=== PATIENT | male | born 1945 | race Caucasian/White ===

== ENCOUNTER → 2017-04-13 | Outpatient (REF) | payer MEDICARE | LOC: M LABDRAWC 11:36 | PROVIDERS: ATTEND Internal Medicine Cardiovascular Disease | DX: R94.31 Abnormal electrocardiogram [ECG] [EKG] (principal); Z79.899 Other long term (current) drug therapy ==

== ENCOUNTER 2021-02-24 16:44 | Inpatient (IN) | payer MEDICARE ==
[~2021-02-24] VITALS: Ht 180.3 cm; Wt 93.5 kg
[2021-02-24 17:08] LABS: VENOUS BASE EXCESS 1.8 (-2.0-2.0); VENOUS HCO3 24.3 MEQ/L (23.0-27.0); VENOUS O2 SATURATION 98.1 % (60.0-80.0); VENOUS PARTIAL PRESSURE O2 98.9 mmHg (30.0-50.0); VENOUS PH 7.499 UNITS (7.330-7.430); VENOUS STANDARD HCO3 26.1 MEQ/L; VENOUS TOTAL CO2 25.3 MEQ/L (24.0-28.0)
[2021-02-24 17:22] LABS: BASO % 0.7 % (0.0-1.0); EOS % 0.2 % (0.0-3.0); HEMOGLOBIN 12.6 g/dl (13.5-17.5); LYMPH # 0.3 10^3/uL (1.5-5.0); LYMPH % 5.7 % (24.0-44.0); MEAN CORPUSCULAR HEMOGLOBIN 28.6 pg (27.0-33.0); MEAN CORPUSCULAR HGB CONC 33.2 g/dl (32.0-36.5); MEAN CORPUSCULAR VOLUME 86.2 fl (80.0-96.0); MONO # 0.2 10^3/uL (0.0-0.8); MONO % 3.5 % (2.0-8.0); NEUTROPHILS # 5.2 10^3/uL (1.5-8.5); NEUTROPHILS % 89.2 % (36.0-66.0); PLATELET COUNT, AUTOMATED 121 10^3/uL (150-450); RED BLOOD COUNT 4.41 10^6/uL (4.30-6.10); WHITE BLOOD COUNT 5.8 10^3/uL (4.0-10.0)
[2021-02-24] MEDS ORDERED: IBUPROFEN 800 MG TAB PO ONE (17:25)
[2021-02-24] MEDS ORDERED: NS 1,000 ML IV ONE (17:35)
--- NOTE | 2021-02-24 17:49 | REP ---
INDICATION: SEPSIS/SHOCK. COMPARISON: None. TECHNIQUE: Portable FINDINGS: The technique utilized in obtaining the radiograph has magnified the cardiac silhouette and accentuated the interstitial markings. The lung beltrán are hypoexpanded further accentuating the findings. There is cardiomegaly accentuated by technique. No patchy parenchymal opacities or pleural effusions are evident on this limited portable exam. The osseous structures are within normal limits. IMPRESSION: There is no acute cardiopulmonary disease. <Electronically signed by Carlo Kim > 02/24/21 [id number]
[2021-02-24 18:01] LABS: ALBUMIN 3.1 GM/DL (3.2-5.2); ALT/SGPT 30 U/L (12-78); AMYLASE 36 U/L (25-115); BILIRUBIN,DIRECT 0.6 MG/DL (0.0-0.2); BILIRUBIN,TOTAL 1.3 MG/DL (0.2-1.0); BLOOD UREA NITROGEN 22 MG/DL (7-18); CALCIUM LEVEL 7.7 MG/DL (8.8-10.2); CARBON DIOXIDE LEVEL 24 MEQ/L (21-32); CHLORIDE LEVEL 105 MEQ/L (98-107); CK-MB VALUE MASS 2.9 NG/ML (<3.6); CPK CREATINE PHOSPHOKINASE 1180 U/L (39-308); CREATININE FOR GFR 1.19 MG/DL (0.70-1.30); GLOMERULAR FILTRATION RATE > 60.0 (>42); GLUCOSE, FASTING 144 MG/DL (70-100); MB/CK RELATIVE INDEX 0.25 (< OR =4); POTASSIUM SERUM 3.7 MEQ/L (3.5-5.1); SODIUM LEVEL 136 MEQ/L (136-145); TOTAL PROTEIN 6.4 GM/DL (6.4-8.2); TROPONIN I < 0.02 NG/ML (< 0.10)
[2021-02-24 18:14] LABS: INR 1.59; PROTHROMBIN TIME 19.3 SECONDS (12.7-14.5)
[2021-02-24 18:15] LABS: PARTIAL THROMBOPLASTIN TIME 42.7 SECONDS (25.9-37.0)
[2021-02-24] MEDS ORDERED: ISOVUE-370 76% 100ML VIAL As Ordered ONE (18:21)
--- NOTE | 2021-02-24 19:54 | REPVR ---
PROCEDURE INFORMATION: Exam: CT Chest With Contrast; Diagnostic Exam date and time: 02/24/2021 7:38 PM Age: 75 years old Clinical indication: Shortness of breath; Additional info: SOB; Upper abdominal pain; Fever TECHNIQUE: Imaging protocol: Diagnostic computed tomography of the chest with contrast. Radiation optimization: All CT scans at this facility use at least one of these dose optimization techniques: automated exposure control; mA and/or kV adjustment per patient size (includes targeted exams where dose is matched to clinical indication); or iterative reconstruction. Contrast material: ISOVUE 370; Contrast volume: 100 ml; Contrast route: INTRAVENOUS (IV); COMPARISON: CR PORTABLE CHEST X-RAY 02/24/2021 5:13 PM FINDINGS: Lungs: Bibasilar atelectasis. Flat nodular opacity medial aspect left upper lobe measures 5 mm. Scattered 2-3 mm noncalcified pulmonary parenchymal nodules demonstrated peripherally. Findings likely postinflammatory. Pleural spaces: Unremarkable. No pneumothorax. No pleural effusion. Heart: There is moderate atherosclerotic calcification of the coronary arteries. Pulmonary arteries: Although not performed as a CTA no significant central pulmonary emboli demonstrated. Evaluation of peripheral pulmonary arteries is limited. Aorta: There is fusiform dilatation of the supravalvular ascending thoracic aorta which measures 3.9 cm. maximally. There is no dissection or saccular component. Lymph nodes: Unremarkable. No enlarged lymph nodes. Bones/joints: Unremarkable. No acute fracture. Soft tissues: Unremarkable. Other findings: Bilateral apical pleuroparenchymal scarring. IMPRESSION: 1. Flat nodular opacity medial aspect left upper lobe measures 5 mm. Scattered 2-3 mm noncalcified pulmonary parenchymal nodules demonstrated peripherally. Findings likely postinflammatory. For patients at low risk (minimal or absent history of smoking and of other known risk factors), no routine follow-up is indicated. For patients at high risk (history of smoking or of other known risk factors), consider optional CT Chest at 12 months. (Reference: Owen) References: Owen Avendano, et al. Guidelines for Management of Incidental Pulmonary Nodules Detected on CT Images: From the Fleischner Society 2017. Radiology. 2017;284(1):228-243. 2. There is fusiform dilatation of the supravalvular ascending thoracic aorta which measures 3.9 cm. maximally. There is no dissection or saccular component. 3. Although not performed as a CTA no significant central pulmonary emboli demonstrated. Evaluation of peripheral pulmonary arteries is limited. Electronically signed by: Enmanuel Almonte On 02/24/2021 19:53:40 PM
--- NOTE | 2021-02-24 19:59 | REPVR ---
PROCEDURE INFORMATION: Exam: CT Abdomen And Pelvis With Contrast Exam date and time: 02/24/2021 7:38 PM Age: 75 years old Clinical indication: Abdominal pain; Localized; Upper; Additional info: SOB; Upper abdominal pain; Fever TECHNIQUE: Imaging protocol: Computed tomography of the abdomen and pelvis with contrast. Radiation optimization: All CT scans at this facility use at least one of these dose optimization techniques: automated exposure control; mA and/or kV adjustment per patient size (includes targeted exams where dose is matched to clinical indication); or iterative reconstruction. Contrast material: ISOVUE 370; Contrast volume: 100 ml; Contrast route: INTRAVENOUS (IV); COMPARISON: CR PORTABLE CHEST X-RAY 02/24/2021 5:13 PM FINDINGS: Liver: Normal. No mass. Gallbladder and bile ducts: Normal. No calcified stones. No ductal dilation. Pancreas: Normal. No ductal dilation. Spleen: Normal. No splenomegaly. Adrenal glands: Normal. No mass. Kidneys and ureters: 8 mm simple cyst lateral aspect of the right kidney. No follow-up suggested. Stomach and bowel: Moderate diverticulosis is present in the distal colon. No diverticulitis. Appendix: No evidence of appendicitis. Intraperitoneal space: Unremarkable. No free air. No significant fluid collection. Vasculature: Unremarkable. No abdominal aortic aneurysm. Lymph nodes: Unremarkable. No enlarged lymph nodes. Urinary bladder: Contour irregularity at the bladder base to the right of midline may be related to prominent median lobe of the prostate gland indenting the bladder although a bladder neoplasm not excluded. Reproductive: The prostate gland demonstrates moderate hyperplasia. Bones/joints: Mild anterolisthesis of L3 on L4. Severe disc space narrowing L4-L5 and L5-S1. Mild central spinal stenosis L1-L2, moderate to severe central spinal stenosis L2-L3 severe central spinal stenosis L3-L4, mild central spinal stenosis L4-L5. Soft tissues: Small right inguinal hernia without incarceration. Other findings: Osteoporosis. IMPRESSION: 1. Moderate prostatic hyperplasia. 2. Contour irregularity at the bladder base to the right of midline may be related to prominent median lobe of the prostate gland indenting the bladder although a bladder neoplasm not excluded. 3. Moderate diverticulosis is present in the distal colon. No diverticulitis. COMMENTS: Consistent with the [place] [employer]'s Incidental Findings Committee white paper (J Am Emil Radiol 2018): Any incidental renal lesion less than 1 cm or classified as too small to characterize, or any incidental cystic renal lesion characterized as simple-appearing, is likely benign. No follow-up imaging is recommended for these lesions per consensus recommendations based on imaging criteria. Electronically signed by: Enmanuel Almonte On 02/24/2021 19:59:23 PM
[2021-02-24] MEDS ORDERED: LIDOCAINE 2% 5ML JELLY UROJET TOP ONE (20:00)
[2021-02-24 20:27] LABS: AMORPHOUS SEDIMENT SMALL (NEGATIVE); APPEARANCE, URINE CLOUDY (CLEAR); BACTERIA, URINE AUTO 2+ (NEGATIVE); BILIRUBIN, URINE AUTO NEGATIVE (NEGATIVE); BLOOD, URINE BLOOD 3+ (NEGATIVE); COLOR, URINE AMBER (YELLOW); GLUCOSE, URINE (UA) AUTO NEGATIVE (NEGATIVE); KETONE, URINE AUTO NEGATIVE (NEGATIVE); LEUKOCYTE ESTERASE, URINE AUTO 3+ (NEGATIVE); MUCUS, URINE SMALL (NEGATIVE); NITRITE, URINE AUTO NEGATIVE (NEGATIVE); PROTEIN, URINE AUTO 2+ mg/dL (NEGATIVE); RBC, URINE AUTO 30 /HPF (0-3); SPECIFIC GRAVITY URINE AUTO 1.048 (1.002-1.035); SQUAMOUS EPITHELIAL CELL UR AU 2 /HPF (0-6); WBC, URINE AUTO TNTC /HPF (0-3)
[2021-02-24] MEDS ORDERED: cefTRIAXone SOD 2 GM in D5W MINI-BAG PLUS 50 ML IV ONE (20:40)
[2021-02-24] MEDS ORDERED: LISI-898 PO (21:15)
[2021-02-24] MEDS ORDERED: ATOR40TA75 PO (21:15)
[2021-02-24] MEDS ORDERED: ELIQ5TAB PO (21:15)
[2021-02-24] MEDS ORDERED: ACET32TAB PO (22:41)
[2021-02-24] MEDS ORDERED: GNP1000T11 PO (22:41)
[2021-02-24] MEDS ORDERED: ACET25TA12 PO (22:41)
[2021-02-24] MEDS ORDERED: VITA500075 PO (22:41)
[2021-02-24] MEDS ORDERED: VITMTA PO (22:41)
[2021-02-24] MEDS ORDERED: MOM 30ML SUSPENSION UDC PO PRN (22:45)
[2021-02-24] MEDS ORDERED: HOME MED LIST COMPLETE! XX SCH (22:45)
[2021-02-24] MEDS ORDERED: MAALOX 30 ML SUSP *UDC PO PRN (22:45)
--- NOTE | 2021-02-24 22:49 | HPEPDOC ---
[facility] Medical History & Physical Date of Admission Feb 24, 2021 Date of Service: Feb 24, 2021 History and Physical CHIEF COMPLAINT: Fevers and chills HISTORY OF PRESENT ILLNESS: 75-year-old male with a past medical history of atrial fibrillation, osteoarthritis, presented to ER with a feeling of generalized malaise and subjective fevers with mild epigastric discomfort. He states he felt the diet well the day prior and he is a rosado understanding to his work chores. On arrival to the ER found to have a temperature of 102. No leukocytosis. UA showing evidence for urinary tract infection. CT of the abdomen showing moderate prostatic hyperplasia with contour irregularity at the bladder base which may represent prominent median lobe of prostate, although a bladder neoplasm cannot be excluded. CT of the chest did not reveal acute findings. Patient was started on ceftriaxone and will be admitted to hospital service for the treatment of sepsis secondary to urinary tract infection. PAST MEDICAL HISTORY: HTN Atrial fibrillation? On eliquis. Arthritis PAST SURGICAL HISTORY: Tonsillectomy, cataract surgery SOCIAL HISTORY: Patient denies smoking Patient denies etoh use Patient denies illicit drug use FAMILY HISTORY: Father had a history of Parkinson's and heart failure. Mother had CVA. Both are . ALLERGIES: Please see below. REVIEW OF SYSTEMS: 10 point ROS was conducted, relevant findings are noted in the HPI. HOME MEDICATIONS: Please see below. PHYSICAL EXAMINATION: VITAL SIGNS: please see below General: NAD, comfortable HEENT: PERRLA, EOMI, sclerae clear Neck: supple, normal ROM, no JVD Respiratory: lungs CTAB, no wheeze, no rales, no crackles CVS: RRR, normal S1, S2, no murmurs Abdo: soft, no masses, no hepatosplenomegaly, BS+, no rebound tenderness Extremities: no edema, pulses 2+ MSK: no joint deformities, normal ROM Neuro: no focal neuro deficits, moving all 4 extremities, CN2-12 intact. Strength 5/5 in all 4 extremities. No nystagmus. Psych: calm, cooperative, AAO x 3 LABORATORY DATA: See below. IMAGING: CT CT abdomen pelvis on 02/24/2021: IMPRESSION: 1. Moderate prostatic hyperplasia. 2. Contour irregularity at the bladder base to the right of midline may be related to prominent median lobe of the prostate gland indenting the bladder although a bladder neoplasm not excluded. 3. Moderate diverticulosis is present in the distal colon. No diverticulitis. CT chest with IV contrast on 02/24/2021: 1. Flat nodular opacity medial aspect left upper lobe measures 5 mm. Scattered 2-3 mm noncalcified pulmonary parenchymal nodules demonstrated peripherally. Findings likely postinflammatory. For patients at low risk (minimal or absent history of smoking and of other known risk factors), no routine follow-up is indicated. For patients at high risk (history of smoking or of other known risk factors), consider optional CT Chest at 12 months. (Reference: Owen) References: Owen Avendano, et al. Guidelines for Management of Incidental Pulmonary Nodules Detected on CT Images: From the Fleischner Society 2017. Radiology. 2017;284(1):228-243. 2. There is fusiform dilatation of the supravalvular ascending thoracic aorta which measures 3.9 cm. maximally. There is no dissection or saccular component. 3. Although not performed as a CTA no significant central pulmonary emboli demonstrated. Evaluation of peripheral pulmonary arteries is limited. MICROBIOLOGY: Please see below. ASSESSMENT: 72-year-old male with no significant past medical history presented with fever and tachycardia. UA showing findings consistent with infection. Patient was started on ceftriaxone. Will be admitted for the treatment of sepsis secondary to UTI. PLAN: Sepsis 2/2 UTI - UA + LE, pyuria, RBCs. - renal function wnl. - CT abdo pelvis showing no hydronephrosis, however patient required straight cath for urine sample - Blood Cx and urine culture sent - started on ceftriaxone in ER, will continue same - Tylenol prn for fever - Monitor CBC and vitals Suspected urinary retention, possibly due to prostatic hyperplasia - obtain bladder US and PVR - will insert ruvalcaba if retention - start flomax Incidental findings of possible bladder mass - may be related to prominent medical prostate gland - order bladder US - will require urology eval, likely outpatient Suspected atrial fibrillation - patient states that he has afib, and takes eliquis - his EKG showed sinus tachycardia at time of arrival - I was unable to find documentation of in her PCP notes - will continue eliquis Hx of HTN - resume lisinopril Ascending thoracic aortic aneurysm - 3.9 cm, no dissection or saccular component - requires outpatient surveillance by vascular surgery. Elevated bilirubin - no c/o abdominal pain at this time, but reported mild discomfrt at time of admission - CT abdomen pelvis w IV contrast does not show distension of gallbladder, or dilation of the CBD - will obtain liver US Incidental pulmonary nodule - outpatient surveillance DVT ppx - heparin 5000 units q8h SC Dispo: admission expect to last > 2 midnights Vital Signs Vital Signs Date Time Temp Pulse Resp B/P (MAP) Pulse Ox O2 Delivery O2 Flow Rate FiO2 02/24/21 22:35 80 95 02/24/21 22:22 17 116/67 (83) Room Air 02/24/21 20:15 97.2 Laboratory Data Labs 24H Laboratory Tests 2 02/24/21 16:58: Blood Gas Bicarbonate Standard 26.1, Venous Blood pH 7.499H, Venous Blood Partial Pressure CO2 32.0L, Venous Blood Partial Pressure O2 98.9H, Venous Blood Total Carbon Dioxide 25.3, Venous Blood HCO3 24.3, Venous Blood Oxygen Saturation 98.1H, Venous Blood Base Excess 1.8 02/24/21 17:01: Immature Granulocyte % (Auto) 0.7, Neutrophils (%) (Auto) 89.2H, Lymphocytes (%) (Auto) 5.7L, Monocytes (%) (Auto) 3.5, Eosinophils (%) (Auto) 0.2, Basophils (%) (Auto) 0.7, Neutrophils # (Auto) 5.2, Lymphocytes # (Auto) 0.3L, Monocytes # (Auto) 0.2, Eosinophils # (Auto) 0.0, Basophils # (Auto) 0.0, Nucleated Red Blood Cells % (auto) 0.0, Anion Gap 7L, Glomerular Filtration Rate > 60.0, Lactic Acid Level 1.3, Calcium Level 7.7L, Total Bilirubin 1.3H, Direct Bilirubin 0.6H, Aspartate Amino Transf (AST/SGOT) 48H, Alanine Aminotransferase (ALT/SGPT) 30, Alkaline Phosphatase 68, Total Creatine Kinase 1180H, Creatine Kinase MB 2.9, Creatine Kinase MB Relative Index 0.25, Troponin I < 0.02, C- Reactive Protein, Quantitative 18.20H, Total Protein 6.4, Albumin 3.1L, Albumin/Globulin Ratio 0.9, Amylase Level 36 02/24/21 17:35: Prothrombin Time 19.3H, Prothromb Time International Ratio 1.59, Activated Partial Thromboplast Time 42.7H 02/24/21 20:11: Urine Color SEAN, Urine Appearance CLOUDYH, Urine pH 5.0, Urine Specific [place] 1.048, Urine Protein 2+H, Urine Glucose (Auto)(UA) NEGATIVE, Urine Ketones (Auto) NEGATIVE, Urine Blood 3+H, Urine Nitrite NEGATIVE, Urine Bilirubin NEGATIVE, Urine Urobilinogen 2.0H, Urine Leukocyte Esterase (Auto) 3+H, Urine WBC (Auto) TNTCH, Urine RBC (Auto) 30H, Urine Hyaline Casts (Auto) 0, Urine Bacteria (Auto) 2+H, Urine Squamous Epithelial Cells 2, Urine Amorphous Sediment (Auto) SMALLH, Urine Mucus (Auto) SMALL, Urine Sperm (Auto) MODERATEH CBC/BMP Laboratory Tests 02/24/21 17:01 Microbiology Microbiology 02/24/21 Blood Culture, Received Pending 02/24/21 Urine Culture, Received Pending 02/24/21 Respiratory Virus Panel (PCR) (RODRIGUE) - Final, Complete 02/24/21 Blood Culture, Received Pending Home Medications Scheduled Acetaminophen/Diphenhydramine (Acetaminophen Pm Caplet) 1 Each Tablet, 1 TAB PO QHS Apixaban (Eliquis) 5 Mg Tablet, 5 MG PO BID Atorvastatin Calcium (Atorvastatin Calcium) 40 Mg Tablet, 40 MG PO QPM Cholecalciferol (Vitamin D3) (Vitamin D3) 125 Mcg Capsule, 125 MCG PO DAILY Glucosamine Sulfate Dipot Chlr (Glucosamine) 1,000 Mg Tablet, 1,000 MG PO DAILY Lisinopril (Lisinopril) 5 Mg Tablet, 5 MG PO QPM Multivitamins (Thera M Plus Tablet) 1 Each Tablet, 1 TAB PO DAILY Scheduled PRN Acetaminophen (Acetaminophen) 325 Mg Tablet, 650 MG PO TID PRN for FEVER Allergies Coded Allergies: No Known Allergies (Unverified , 02/24/21) BROOKE FERRIS MD Feb 24, 2021 22:49
[2021-02-24] MEDS: APIXABAN 5 MG TAB (ELIQUIS) PO SCH (23:15)
--- NOTE | 2021-02-25 01:15 | REPVR ---
PROCEDURE INFORMATION: Exam: US Abdomen, Limited; Right Upper Quadrant Exam date and time: 02/24/2021 11:06 PM Age: 75 years old Clinical indication: Abdominal pain; Acute; Additional info: Bili elevated TECHNIQUE: Imaging protocol: US abdomen. Real time ultrasound with image documentation. Limited exam focused on the right upper quadrant. COMPARISON: CT ABD/PEL W/IV CONTRAST ONLY 02/24/2021 7:22 PM FINDINGS: Liver: Normal. No masses. Gallbladder: No cholelithiasis or pathologic gallbladder wall thickening. Common bile duct: Normal. No stones. No dilation. Pancreas: No focal abnormality involving the visualized portions of the pancreas. Right kidney: Right kidney measures up to 12.0 cm. Small cyst at the mid to inferior kidney measures 1.5 cm. No hydronephrosis. IMPRESSION: No acute abnormality. Electronically signed by: Robby Rodgers On 02/25/2021 01:15:20 AM
[2021-02-25 01:32] VITALS: BP 133/74
[2021-02-25] MEDS: ACETAMINOPHEN TAB 650MG DOSE (2X325MG) PO PRN ×2 (05:05→22:05)
[2021-02-25 06:00] VITALS: BP 107/56
[2021-02-25] MEDS ORDERED: IBUPROFEN 400MG TAB PO ONE (06:15)
[2021-02-25 06:55] LABS: BASO % 0.4 % (0.0-1.0); EOS % 0.1 % (0.0-3.0); HEMATOCRIT 36.4 % (42.0-52.0); HEMOGLOBIN 11.9 g/dl (13.5-17.5); LYMPH # 0.2 10^3/uL (1.5-5.0); LYMPH % 2.4 % (24.0-44.0); MEAN CORPUSCULAR HEMOGLOBIN 28.3 pg (27.0-33.0); MEAN CORPUSCULAR HGB CONC 32.7 g/dl (32.0-36.5); MEAN CORPUSCULAR VOLUME 86.5 fl (80.0-96.0); MONO # 0.3 10^3/uL (0.0-0.8); MONO % 3.3 % (2.0-8.0); NEUTROPHILS # 7.7 10^3/uL (1.5-8.5); NEUTROPHILS % 93.3 % (36.0-66.0); PLATELET COUNT, AUTOMATED 109 10^3/uL (150-450); RED BLOOD COUNT 4.21 10^6/uL (4.30-6.10); WHITE BLOOD COUNT 8.3 10^3/uL (4.0-10.0)
[2021-02-25 07:15] LABS: ALBUMIN 2.5 GM/DL (3.2-5.2); ALT/SGPT 36 U/L (12-78); BILIRUBIN,TOTAL 0.7 MG/DL (0.2-1.0); BLOOD UREA NITROGEN 21 MG/DL (7-18); CALCIUM LEVEL 7.7 MG/DL (8.8-10.2); CARBON DIOXIDE LEVEL 25 MEQ/L (21-32); CHLORIDE LEVEL 107 MEQ/L (98-107); CREATININE FOR GFR 0.95 MG/DL (0.70-1.30); GLOMERULAR FILTRATION RATE > 60.0 (>42); GLUCOSE, FASTING 95 MG/DL (70-100); POTASSIUM SERUM 3.8 MEQ/L (3.5-5.1); SODIUM LEVEL 140 MEQ/L (136-145)
[2021-02-25] MEDS: MULTIVITAMINS/MINERALS THERAP 1 TAB PO SCH (08:14)
[2021-02-25] MEDS: APIXABAN 5 MG TAB (ELIQUIS) PO SCH ×2 (08:14→20:01)
[2021-02-25] MEDS: TAMSULOSIN 0.4 MG CAP PO SCH (08:14)
[2021-02-25] MEDS: PIPERACILLIN/TAZOBACTAM SOD 3.375 GM in D5W MINI-BAG PLUS 50 ML IV SCH ×3 (08:37→20:02)
[2021-02-25] MEDS ORDERED: NS 1,000 ML IV ONE ×2 (08:45→15:25)
[2021-02-25] MEDS ORDERED: KETOROLAC 30 MG/ML 1ML VIAL IV ONE (08:50)
[2021-02-25] MEDS ORDERED: cefTRIAXone SOD 1 GM in D5W MINI-BAG PLUS 50 ML IV SCH (09:00)
[2021-02-25] MEDS ORDERED: ACETAMINOPHEN 500 MG TAB PO ONE (09:00)
[2021-02-25 09:33] VITALS: BP 108/58
[2021-02-25] MEDS ORDERED: VANCOMYCIN HCL 1,000 MG, VIAL MATE ADAPTER 1 EACH in NS 250 ML IV ONE (10:00)
[2021-02-25] MEDS ORDERED: VANCOMYCIN HCL 750 MG, VIAL MATE ADAPTER 1 EACH in NS 250 ML IV ONE (11:00)
[2021-02-25] MEDS ORDERED: FLUBLOK(EGG FREE)(QUAD)INFLUENZA VACC 0.5ML SYRINGE 18YRS & OLDER IM ONE (12:00)
--- NOTE | 2021-02-25 13:10 | IPN ---
PROGRESS NOTE DATE: 02/25/2021 SUBJECTIVE: Patient complains of chills, not feeling well, no chest pain, pressure, tightness, shortness of breath, nausea or vomiting. He complains of slight abdominal discomfort without constipation or diarrhea. T-max is 103.5 despite Tylenol and Ibuprofen and Toradol. OBJECTIVE: VITAL SIGNS: T-max 103.5. Currently temperature 99.9, pulse is 120, respiratory rate 22, blood pressure 108/58, 89% on room air. GENERAL: Patient is ill-appearing, shaking, no use of respiratory accessory muscles. No JVD or thyromegaly. LUNGS: Diminished, clear to auscultation. No wheezing, rales or rhonchi. HEART: S1 and S2, sinus tachycardia. ABDOMEN: Soft, positive bowel sounds x4 quadrants. No rebound or guarding. No hepatosplenomegaly. EXTREMITIES: No pitting edema. LABORATORY DATA/IMAGING STUDIES/MICROBIOLOGY: Have been reviewed. ASSESSMENT AND PLAN: This is a 72-year-old who presented with a past medical history significant for atrial fibrillation, osteoarthritis, hypertension, tonsillectomy and cataract surgery who complained of fever of [address] of the abdomen shows moderate prostatic hyperplasia, UA was concerning for a urinary tract infection, was admitted for sepsis secondary to urinary tract infection. IMPRESSION: 1. Sepsis secondary to urinary tract infection. 2. Chronic atrial fibrillation. 3. Osteoarthritis. 4. Hypertension. PLAN: Patient will need broader spectrum coverage due to severe sepsis with IV Zosyn, Vancomycin, IV fluids, antiemetics.
[2021-02-25 14:00] VITALS: BP 104/58
[2021-02-25] MEDS ORDERED: MIDODRINE 5 MG TAB PO ONE (15:25)
[2021-02-25] MEDS: ATORVASTATIN 20 MG TAB PO SCH (17:55)
[2021-02-25] MEDS: NS 1,000 ML IV SCH (17:55)
[2021-02-25] MEDS ORDERED: lisinopriL 5 MG TAB PO SCH (18:00)
--- NOTE | 2021-02-25 19:57 | ECGEPIP ---
[facility] - ED Test Date: 2021-02-24 Pat Name: MATTI COREY Department: Room: [place] [address] Gender: Male Facility Worker: lavinia : [id number] Requested By: STEW AMES Order Number: [id number] Reading MD: Brigid Reece Measurements Intervals [place] Rate: 127 P: 31 GA: 198 QRS: -18 QRSD: 80 T: 11 QT: 270 QTc: 392 Interpretive Statements Sinus tachycardia with premature atrial complexes Possible Left atrial enlargement Inferior infarct , age undetermined delayed r progression no prior Electronically Signed on 02-25-2021 19:56:53 EDT by Brigid Reece
[2021-02-25 22:00] VITALS: BP 136/72
[2021-02-25] MEDS ORDERED: VANCOMYCIN HCL 1,000 MG, VIAL MATE ADAPTER 1 EACH in NS 250 ML IV SCH (22:00)
[2021-02-26] MEDS: NS 1,000 ML IV SCH ×3 (00:13→20:14)
[2021-02-26] MEDS: PIPERACILLIN/TAZOBACTAM SOD 3.375 GM in D5W MINI-BAG PLUS 50 ML IV SCH ×4 (03:09→20:13)
[2021-02-26 06:00] VITALS: BP 132/70
[2021-02-26 06:47] LABS: HEMATOCRIT 32.5 % (42.0-52.0); HEMOGLOBIN 10.8 g/dl (13.5-17.5); MEAN CORPUSCULAR HEMOGLOBIN 28.8 pg (27.0-33.0); MEAN CORPUSCULAR HGB CONC 33.2 g/dl (32.0-36.5); MEAN CORPUSCULAR VOLUME 86.7 fl (80.0-96.0); PLATELET COUNT, AUTOMATED 104 10^3/uL (150-450); RED BLOOD COUNT 3.75 10^6/uL (4.30-6.10); WHITE BLOOD COUNT 5.1 10^3/uL (4.0-10.0)
[2021-02-26 07:11] LABS: BLOOD UREA NITROGEN 17 MG/DL (7-18); CALCIUM LEVEL 7.2 MG/DL (8.8-10.2); CARBON DIOXIDE LEVEL 23 MEQ/L (21-32); CHLORIDE LEVEL 110 MEQ/L (98-107); CREATININE FOR GFR 0.87 MG/DL (0.70-1.30); GLOMERULAR FILTRATION RATE > 60.0 (>42); GLUCOSE, FASTING 109 MG/DL (70-100); POTASSIUM SERUM 3.6 MEQ/L (3.5-5.1); SODIUM LEVEL 139 MEQ/L (136-145)
[2021-02-26 07:55] LABS: ATYPICAL LYMPH 2 % (0-5); BASOPHILS 1 % (0-1); EOSINOPHILS 2 % (0-3); LYMPHOCYTES 5 % (16-44); MONOCYTES 8 % (0-5); NEUTROPHILS 72 % (28-66)
[2021-02-26 07:56] LABS: OVALOCYTES 1+; PLATELET ESTIMATE DECREASED (NORMAL); SCHISTOCYTES 1+
[2021-02-26] MEDS: APIXABAN 5 MG TAB (ELIQUIS) PO SCH ×2 (08:17→20:13)
[2021-02-26] MEDS: MULTIVITAMINS/MINERALS THERAP 1 TAB PO SCH (08:17)
[2021-02-26] MEDS: TAMSULOSIN 0.4 MG CAP PO SCH (08:17)
--- NOTE | 2021-02-26 10:26 | IPN ---
PROGRESS NOTE DATE: 02/26/2021 SUBJECTIVE: Maximum temperature (T-max) was 103.5 at 9:33 a.m. on 02/25/2021. Patient currently denies any dysuria, urgency, frequency, flank pain or hematuria. He continues to have a fever at 100.4 at midnight last night. Denies any chest pain, pressure, tightness, shortness of breath, cough, nausea, vomiting, diarrhea, abdominal pain or flank pain. No other issues per nursing overnight. Blood pressure is well maintained at 130 systolic. PHYSICAL EXAMINATION: VITAL SIGNS: Maximum temperature (T-max) 103.5, current temperature 99.8, pulse 84, respiratory rate 21, blood pressure 132/70, 93% on room air. GENERAL: Awake, alert, oriented to person, place and time, answering questions appropriately, no distress. LUNGS: Clear to auscultation. No wheezing, rales or rhonchi. HEART: S1, S2. Sinus rhythm. ABDOMEN: Soft, nontender, nondistended. No costovertebral angle (CVA) tenderness. EXTREMITIES: No cyanosis or clubbing. LABORATORY DATA/MICROBIOLOGY/IMAGING STUDIES: Have been reviewed. ASSESSMENT: This is a 72-year-old with history of chronic atrial fibrillation, osteoarthritis, hypertension, tonsillectomy and cataract surgery, complained of fever up to 103.5 and chills. Urinalysis (UA) was consistent with urinary tract infection (UTI). CT abdomen and pelvis shows moderate prostatic hyperplasia without pyelonephritis. Patient was admitted for sepsis secondary to urinary tract infection. IMPRESSION: 1. Sepsis secondary to urinary tract infection. 2. Urinary tract infection with Escherichia (E) coli, vallecillo sensitive without resistance. 3. Chronic atrial fibrillation. 4. Hypertension. 5. Osteoarthritis. PLAN: Since patient has Escherichia (E) coli in the urine, vancomycin will be discontinued. He is continued on Zosyn until patient's fever has subsided for 24 hours. Patient may be discharged home on Levaquin as outpatient once he is clinically stable. He is resumed on all other home medications. DISPOSITION: Discharge home in the morning if patient has had no fever for 24 hours.
[2021-02-26] MEDS ORDERED: FLUBLOK(EGG FREE)(QUAD)INFLUENZA VACC 0.5ML SYRINGE 18YRS & OLDER IM ONE (11:05)
[2021-02-26 15:30] VITALS: BP 146/77
[2021-02-26] MEDS: ACETAMINOPHEN TAB 650MG DOSE (2X325MG) PO PRN (15:36)
[2021-02-26] MEDS: ATORVASTATIN 20 MG TAB PO SCH (18:18)
[2021-02-26 22:00] VITALS: BP 136/78
[2021-02-26 22:17] VITALS: BP 136/78
[2021-02-27] MEDS: PIPERACILLIN/TAZOBACTAM SOD 3.375 GM in D5W MINI-BAG PLUS 50 ML IV SCH ×3 (03:57→15:04)
[2021-02-27 06:00] VITALS: BP 135/79
[2021-02-27 06:38] LABS: BASO % 0.4 % (0.0-1.0); EOS # 0.1 10^3/uL (0.0-0.5); EOS % 2.9 % (0.0-3.0); HEMOGLOBIN 10.4 g/dl (13.5-17.5); LYMPH # 0.4 10^3/uL (1.5-5.0); LYMPH % 8.6 % (24.0-44.0); MEAN CORPUSCULAR HEMOGLOBIN 28.2 pg (27.0-33.0); MEAN CORPUSCULAR HGB CONC 32.5 g/dl (32.0-36.5); MEAN CORPUSCULAR VOLUME 86.7 fl (80.0-96.0); MONO # 0.7 10^3/uL (0.0-0.8); MONO % 13.3 % (2.0-8.0); NEUTROPHILS # 3.6 10^3/uL (1.5-8.5); NEUTROPHILS % 74.2 % (36.0-66.0); PLATELET COUNT, AUTOMATED 116 10^3/uL (150-450); RED BLOOD COUNT 3.69 10^6/uL (4.30-6.10); WHITE BLOOD COUNT 4.9 10^3/uL (4.0-10.0)
[2021-02-27 07:11] LABS: BLOOD UREA NITROGEN 9 MG/DL (7-18); CALCIUM LEVEL 7.5 MG/DL (8.8-10.2); CARBON DIOXIDE LEVEL 24 MEQ/L (21-32); CHLORIDE LEVEL 111 MEQ/L (98-107); CREATININE FOR GFR 0.74 MG/DL (0.70-1.30); GLOMERULAR FILTRATION RATE > 60.0 (>42); GLUCOSE, FASTING 112 MG/DL (70-100); POTASSIUM SERUM 3.6 MEQ/L (3.5-5.1); SODIUM LEVEL 143 MEQ/L (136-145)
[2021-02-27] MEDS ORDERED: BACITAB PO (08:07)
[2021-02-27] MEDS ORDERED: LEVO750T14 PO (08:07)
[2021-02-27] MEDS: TAMSULOSIN 0.4 MG CAP PO SCH (08:21)
[2021-02-27] MEDS: APIXABAN 5 MG TAB (ELIQUIS) PO SCH (08:21)
[2021-02-27] MEDS: MULTIVITAMINS/MINERALS THERAP 1 TAB PO SCH (08:21)
[2021-02-27] MEDS ORDERED: FLUBLOK(EGG FREE)(QUAD)INFLUENZA VACC 0.5ML SYRINGE 18YRS & OLDER IM ONE (09:00)
--- NOTE | 2021-02-27 11:53 | DS.PDOC ---
Discharge Summary General Date of Admission Feb 24, 2021 at 22:43 Date of Discharge 02/27/21 Discharge Summary DISCHARGE DIAGNOSES: SEPSIS UTI W ECOLI ECOLI TRANSIENT BACTEREMIA CHRONIC AFIB OA HTN GAIT INSTABILITY DISCHARGE MEDICATIONS: SEE BELOW DISCHARGE INSTRUCTIONS: PCP FU APPT WITHIN 7 DAYS. PCP TO REFER TO UROLOGY FOR BPH. HOSPITAL COURSE: This is a 72-year-old with history of chronic atrial fibr illation, osteoarthritis, hypertension, tonsillectomy and cataract surgery, complained of fever up to 103.5 and chills. Urinalysis (UA) was consistent with urinary tract infection (UTI). CT abdomen and pelvis shows moderate prostatic hyperplasia without pyelonephritis. Patient was admitted for sepsis secondary to urinary tract infection. He was started on iv ceftriaxone, but continued to have severe rigors, tmax 103.5 for 48hrs. Ceftriaxone was discontinued. Pt was given IV vancomycin and IV zosyn, until culture results showed E.coli in both the blood and urine. Pt was kept on zosyn until afebrile for 24hrs. PT evaluated the patient. He is to complete po levaquin at home after discharge. DISCHARGE PHYSICAL EXAMINATION: VITAL SIGNS: SEEBELOW GENERAL: Awake, alert, oriented to person, place and time, answering questions appropriately, no distress. LUNGS: Clear to auscultation. No wheezing, rales or rhonchi. HEART: S1, S2. Sinus rhythm. ABDOMEN: Soft, nontender, nondistended. No costovertebral angle (CVA) tenderness. EXTREMITIES: No cyanosis or clubbing. LABORATORY DATA/MICROBIOLOGY/IMAGING STUDIES: SEE CHART TIME SPENT ON DISCHARGE: 30 M IN Vital Signs/I&Os Vital Signs Date Time Temp Pulse Resp B/P (MAP) Pulse Ox O2 Delivery O2 Flow Rate FiO2 02/27/21 06:00 99.6 74 20 135/79 (97) 94 Room Air 02/25/21 14:00 1.0 I&O- Last 24 Hours up to 6 AM 02/27/21 06:00 Intake Total 2038 ml Output Total 2850 ml Balance -812 ml Laboratory Data Labs 24H Laboratory Tests 2 02/27/21 06:26: Immature Granulocyte % (Auto) 0.6, Neutrophils (%) (Auto) 74.2H, Lymphocytes (%) (Auto) 8.6L, Monocytes (%) (Auto) 13.3H, Eosinophils (%) (Auto) 2.9, Basophils (%) (Auto) 0.4, Neutrophils # (Auto) 3.6, Lymphocytes # (Auto) 0.4L, Monocytes # (Auto) 0.7, Eosinophils # (Auto) 0.1, Basophils # (Auto) 0.0, Nucleated Red Blood Cells % (auto) 0.0, Anion Gap 8, Glomerular Filtration Rate > 60.0, Calcium Level 7.5L CBC/BMP Laboratory Tests 02/27/21 06:26 Microbiology Microbiology 02/26/21 Blood Culture - Preliminary, Resulted No growth after 24 hours . All specim... 02/26/21 Blood Culture - Preliminary, Resulted No growth after 24 hours . All specim... 02/24/21 Blood Culture - Final, Complete Escherichia Coli 02/24/21 Urine Culture - Final, Complete Escherichia Coli 02/24/21 Respiratory Virus Panel (PCR) (RODRIGUE) - Final, Complete 02/24/21 Blood Culture - Final, Complete Escherichia Coli Discharge Medications Scheduled Acetaminophen/Diphenhydramine (Acetaminophen Pm Caplet) 1 Each Tablet, 1 TAB PO QHS, (Reported) Apixaban (Eliquis) 5 Mg Tablet, 5 MG PO BID, (Reported) Atorvastatin Calcium (Atorvastatin Calcium) 40 Mg Tablet, 40 MG PO QPM, (Reported) Cholecalciferol (Vitamin D3) (Vitamin D3) 125 Mcg Capsule, 125 MCG PO DAILY, (Reported) Glucosamine Sulfate Dipot Chlr (Glucosamine) 1,000 Mg Tablet, 1,000 MG PO DAILY, (Reported) L.acidoph/L.bulg/B.bif/S.therm (Bacid Caplet) 1 Each Tablet, 1 TAB PO WMHS Lisinopril (Lisinopril) 5 Mg Tablet, 5 MG PO QPM, (Reported) Multivitamins (Thera M Plus Tablet) 1 Each Tablet, 1 TAB PO DAILY, (Reported) levoFLOXacin (levoFLOXacin) 750 Mg Tablet, 750 MG PO DAILY Scheduled PRN Acetaminophen (Acetaminophen) 325 Mg Tablet, 650 MG PO TID PRN for FEVER, (Reported) Allergies Coded Allergies: No Known Allergies (Unverified , 02/24/21) NIDA GHOSH MD Feb 27, 2021 11:53
[2021-02-27 14:00] VITALS: BP 142/80
== END 2021-02-27 17:10 | disposition home or self-care (01) | DRG 872 ==
LOC: M ED 16:44 → M ED INP 22:43 → ENRESERV 02-25 00:14 → M MSPAV 02-25 01:32
PROVIDERS: ADMIT Family Medicine; ATTEND General Practice
DX: A41.51 Sepsis due to Escherichia coli [E. coli] (principal); N39.0 Urinary tract infection, site not specified; I48.20 Chronic atrial fibrillation, unspecified; I10 Essential (primary) hypertension; R65.20 Severe sepsis without septic shock; M19.90 Unspecified osteoarthritis, unspecified site; R26.2 Difficulty in walking, not elsewhere classified; Z79.899 Other long term (current) drug therapy; Z79.01 Long term (current) use of anticoagulants; I71.2 Thoracic aortic aneurysm, without rupture; R91.1 Solitary pulmonary nodule; N40.0 Benign prostatic hyperplasia without lower urinary tract symptoms

== ENCOUNTER → 2021-04-27 | Outpatient (REF) | payer MEDICARE ==
[~2021-04-27] MED LIST: ACET25TA12 PO; ACET32TAB PO; ATOR40TA75 PO; BACITAB PO; ELIQ5TAB PO; GNP1000T11 PO; LEVO750T14 PO; LISI-898 PO; VITA500075 PO; VITMTA PO
== END ==
LOC: M LAB REF 16:53
PROVIDERS: ATTEND Family Medicine
DX: N40.1 Benign prostatic hyperplasia with lower urinary tract symptoms (principal)

== ENCOUNTER → 2022-08-31 | Outpatient (CLI) | payer MEDICARE ==
[~2022-08-31] MED LIST changes: -LISI-898 PO; +LISI5TAB11 PO
== END ==
LOC: M PLAIMG 09:40
PROVIDERS: ATTEND Nurse Practitioner Family
DX: M25.551 Pain in right hip (principal)

== ENCOUNTER → 2024-02-04 | Outpatient (CLI) | payer MEDICARE | LOC: M PLAIMG 14:26 | PROVIDERS: ATTEND Registered Nurse | DX: I08.3 Combined rheumatic disorders of mitral, aortic and tricuspid valves (principal); I27.20 Pulmonary hypertension, unspecified ==